=== PATIENT | female | born 1965 | race Caucasian/White ===

== ENCOUNTER 2022-04-04 07:39 | Outpatient (CLI) | payer BC, SELFPAY ==
--- NOTE | ~2022-04-04 | MM_ITS ---
EXAMINATION: MM scrn sabine implant BI w meliza HISTORY: Screening mammogram TECHNIQUE: Craniocaudal and mediolateral oblique 3-D tomosynthesis images with implant displacement a nd synthetic 2-D images were generated. Craniocaudal and mediolateral oblique views of the breasts wi thout implant displacement were obtained using full field digital mammography. CAD analysis was submi tted and interpreted. COMPARISON: No prior mammogram is available for comparison at this institution. BREAST PARENCHYMAL COMPOSITION: There are scattered areas of fibroglandular density. FINDINGS: There are bilateral subglandular breast implants with partial collapse of the left breast i mplant. There is no evidence of suspicious mass, calcification, or architectural distortion to sugges t malignancy in either breast. There has been no suspicious interval change. IMPRESSION: 1. No mammographic evidence of malignancy. 2. Recommend routine screening mammography in one year. BI-RADS Category 1: Negative Reviewed, dictated and finalized at location A. [employer]
== END 2022-04-04 07:40 | disposition home or self-care (01) ==
LOC: ANHIMG 07:43
PROVIDERS: Visit Provider Surgery Plastic and Reconstructive Surgery
DX: Z12.31 Encounter for screening mammogram for malignant neoplasm of breast (principal)
CPT/HCPCS: 77063; 77067

== ENCOUNTER 2022-04-15 07:53 | Day surgery (SDC) | payer OTHER, SELFPAY ==
[2022-03-31 17:02] VITALS: BMI 20.2
--- NOTE | 2022-04-01 10:05 | PC.NURSE ---
Report to the Outpatient Waiting Room, entrance under the green pavilion located off [facility], at 1230 on 04-15-22. Planned Procedure Time: 1430. Time changes happen often and if your time is changed the preop area will call you the afternoon before. - You and your visitor will be asked to self-screen and do not enter if you have any COVID symptoms. - Only one visitor is requested with a max of two and NO children visitors are allowed at this time. - The patient visitor may be requested to leave or wait in car when not with patient due to distancing restrictions. - A mask is required within the hospital. Patients may have clear liquids (water, carbonated beverages, clear teas, apple juice) until 3 hours prior to surgery with a maximum of 20 ounces. 1130 - No food from midnight until time of surgery - Infants may have breast milk until 4 hours before surgery, infant formula 6 hours prior to surgery. - Children will be allowed to drink immediately following surgery. If applicable, please bring a bottle or sippy cup to assist with drinking. Juice, water, soda, and popsicles are readily available. For infants on formula, please bring formula the day of surgery. Pacifiers are allowed. Take the following medications with a SIP of water the morning of surgery: mesalamine; tylenol and/or tramadol if needed Medications to discontinue per physician: N/A Please no make-up, nail honduran, hairspray, perfume, deodorant, or body powder the day of surgery. No jewelry (including any body piercings) or valuables the day of surgery, leave them at home. Please take a shower or bath the night before, or the morning of, surgery with an antibacterial soap. Wear comfortable, loose fitting clothing. Children are encouraged to wear pajamas. - Jewelry must be removed prior to entering the operating room. Rings and piercings that are not removed may be cut off. - The hospital will not accept responsibility for valuables. - Please leave all valuables, including medications, at home the day of surgery. If you are going home after surgery, a licensed vending route driver must drive you home. - NO public transportation without another adult if you receive anesthesia. - We recommend that an adult stay with you for 24 hours following discharge. - We also recommend that you do not drive, make important decision, drink alcoholic beverages, or take any drugs that were not prescribed by your health care provider for at least 24 hours after your discharge time. For Pediatric surgeries, we recommend two adults accompany the child home. Follow any additional instructions given to you from your surgeon. If you or anyone in your household have experienced Covid symptoms in the past week, please notify your surgeon or the nurse liaison at the phone number below for possible testing. Telephone instructions given to Janett Llanos and asked if any additional questions and then verbalized understanding. Patient advised to call surgeon office or pre surgery nurse liaison [phone] if any additional questions.
[2022-04-15] VITALS (7 sets, daily range): BP systolic 105–131; BP diastolic 61–78; PULSE 62–80; RESP 16–18; TEMP 36.2–37.3; O2SAT 95–100
[2022-04-15] MEDS: LACTATED RINGERS 1,000 ML 30 ML IV CONT ×2 (12:30→14:14)
--- NOTE | 2022-04-15 12:40 | WPDANESEPPF ---
Anes - Initial Pre Proc Eval Procedure: Operation Date: 04/15/22 14:30 Proposed Procedures p Bilateral Breast Implant Exchange with Capsulectomy - Akhil Gibbs MD Date/Time: 04/15/22 12:40 Surgeon: Akhil Gibbs MD Pre Op Diagnosis: hx of breast aug Patient Data Age: 57 Gender: F Height: 1.63 m Weight: 53.52 kg Allergies Allergy/AdvReac Type Severity Reaction Status Date / Time bacitracin Allergy Mild Rash Verified 03/31/22 17:00 [From Neosporin ([id number])] neomycin Allergy Mild Rash Verified 03/31/22 17:00 [From Neosporin ([id number])] polymyxin B Allergy Mild Rash Verified 03/31/22 17:00 [From Neosporin ([id number])] Home Medications Medication Instructions Recorded Confirmed Type acetaminophen 500 mg capsule 1,000 mg PO Q6H PRN Pain 03/31/22 03/31/22 History mesalamine 1.2 gram tablet,delayed 1.2 g PO BID 03/31/22 03/31/22 History release tramadol 50 mg tablet 50 mg PO Q4-6H PRN pain 03/31/22 03/31/22 History Patient hx anesthesia problems: none Family hx anesthesia problems: none Results Review: All pre-operative results and documents have been reviewed as part of the pre-operative evaluation. FOR[facility]LY [facility], [facility] Social History Social History Years smoked: 15 Smoking status: Former smoker Tobacco type: cigarettes and e-cigarettes/vaping Smoking end date: 04/13/14 Alcohol intake: current Drinks per week: 4 Alcohol use details: wine Substance use: never Substance use type: does not use Living arrangements: with family Spiritual care concerns: No Anes - Eval Final PreProcedure Day of Procedure 04/15/22 12:40 Patient weight: normal Heart: regular rate and rhythm Lungs: clear to auscultation Airway: Mallampati scale class II Neurological: alert and oriented Last oral intake: >/= 8 hours ASA classification: II Emergent: no Anesthetic plan: proceed Anesthesia type and monitoring: general LMA and standard monitoring Results Review: All pre-operative results and documents have been reviewed as part of the pre-operative evaluation. Informed Consent: The patient's anesthetic plan and its attendant risks and benefits were discussed with the patient/family/POA. Questions were solicited and answers provided to the satisfaction of the patient/family/POA.
--- NOTE | 2022-04-15 12:48 | P.HP_ITS ---
H&P: HPI History of Present Illness Date/Time: 04/15/22 12:48 Chief Complaint: Ruptured breast implant Narrative: She is here today for bilateral breast implant exchange with capsulectomy. Review of Systems Review of Systems: All systems reviewed & are unremarkable except as noted in HPI and below [facility] Social History Social History Years smoked: 15 Smoking status: Former smoker Tobacco type: cigarettes and e-cigarettes/vaping Smoking end date: 04/13/14 Alcohol intake: current Drinks per week: 4 Alcohol use details: wine Substance use: never Substance use type: does not use Living arrangements: with family Spiritual care concerns: No Meds Home Medications and Allergies Home Medications Medication Instructions Recorded Confirmed Type acetaminophen 500 mg capsule 1,000 mg PO Q6H PRN Pain 03/31/22 03/31/22 History mesalamine 1.2 gram tablet,delayed 1.2 g PO BID 03/31/22 03/31/22 History release tramadol 50 mg tablet 50 mg PO Q4-6H PRN pain 03/31/22 03/31/22 History Allergies Allergy/AdvReac Type Severity Reaction Status Date / Time bacitracin Allergy Mild Rash Verified 03/31/22 17:00 [From Neosporin ([id number])] neomycin Allergy Mild Rash Verified 03/31/22 17:00 [From Neosporin ([id number])] polymyxin B Allergy Mild Rash Verified 03/31/22 17:00 [From Neosporin ([id number])] Exam Narrative: Alert and oriented distress Respiratory on labored Abdomen soft. Bilateral breasts are soft. No masses palpable. Bilateral breast waterfall deformity. Left breast implant ruptured. Assessment and Plan Assessment and plan (1) History of breast augmentation: Code(s): Z98.82 - Breast implant status Status: Acute Assessment and Plan: She would like proceed with bilateral breast implant exchange with partial capsulectomy. Previously and again today risks, benefits, alternatives discussed in great detail. I wanted her to be very realistic about the risks involved as well as expectations. Answered all of her questions to her satisfaction. It was explained she will always have the waterfall deformity she has and she declines mastopexy. She understands the risks of implant usage. She would like to send the capsule and understands this is additional expense. She voiced a clear understanding along with her family. Consent obtained. (2) Ruptured left breast implant: Code(s): T85.43XA - Leakage of breast prosthesis and implant, initial encounter Status: Acute
--- NOTE | 2022-04-15 12:53 | WPDHPUPDATE1 ---
History and Physical Update Update Date/Time: 04/15/22 12:53 History and Physical has been reviewed, including an updated exam of the patient. There are NO changes in the patient's condition. Risks, benefits, and alternatives have been discussed and questions answered. Patient agrees to proceed with procedure.
--- NOTE | 2022-04-15 12:58 | P.OP_ITS ---
Procedure Note - Detailed Date of Procedure 04/15/22 Pre-op Diagnosis hx of breast aug Post-op Diagnosis Same Procedure Performed Bilateral breast implant exchange with partial capsulectomy Surgeon Akhil Gibbs MD Anesthesia General Findings Previous implants saline smooth: Right [place] 250cc Left [place] 200cc Bilateral Natrelle Saline [cc] cc Right - REF# [id number] SN [id number] filled to 300 cc Left - REF# [id number] SN [id number] filled to 300 cc Right capsule soft / thin. Left capsule calcified. Description of Procedure Preoperatively the risks, benefits, alternatives were discussed in extensive detail. I wanted to be very realistic about the risks involved as well as expectations. I was clear about how we could actually make her worse. She has a degree of waterfall deformity and understands she will still have this and declines treatment. Answered all questions to satisfaction. Voiced a clear understanding. Consent obtained. She was taken the operating room placed supine on the operating room table. Anesthesia provided by anesthesiology and prepped and draped in a standard sterile fashion. Surgical time-out was taken. 1% lidocaine and 0.25% Marcaine with epinephrine was used to provide a field block. Tegaderm nipple baker were placed. Fifteen blade used to excise the previous IMF scars. Dissection was continued down until the capsules were identified and excised the majority of bilateral capsules which were sent to pathology. I then copiously irrigated with 3 L of saline solution on TUR tubing. Verified strict hemostasis. I then irrigated with Betadine containing solution. There was a size differential on implants (unknown fill volume); however, on examination there was minimal different in current breast tissue volume. As such implants were selected as above. On the back table the implant was opened and immediately Betadine solution irrigation was used. I removed the air and this was introduced into the pocket. Using a fill kit the volume was filled as described above. This was closed with 2-0 Vicryl followed by 3-0 Monocryl and a running subcuticular 4-0 Monocryl followed by tissue glue. Dressings were placed. She was woken taken to the PACU without difficulty. All instrument sponge counts were correct at the end of the case. Estimated Blood Loss 30 Drains No Packing No Pathology Yes (bilateral breast capsules) Complications No immediate complications Condition Stable Disposition PACU
[2022-04-15] MEDS: TRANEXAMIC ACID 1,000MG/ISO100 1,000 MG/100 ML BAG 200 MG IVPB (12:59)
[2022-04-15] MEDS: ceFAZolin 2 GM/D5W 50 ML 2 GM/50 ML BAG IVPB (13:09)
[2022-04-15] MEDS: NACL 0.9% IRRIG POUR BOTTLE 900 ML, GENTAMICIN SULFATE INJ 160 MG, ceFAZolin 2 GM, POVI... IRRIGATION (13:24)
[2022-04-15] MEDS: BUPIVACAINE/EPINEPHRINE 0.5% 30 ML VIAL INFILTRATE (13:26)
[2022-04-15] MEDS: LIDOCAINE HCL 1% PF 30 ML VIAL INFILTRATE (13:27)
== END 2022-04-15 15:38 | disposition home health service (06) ==
PROVIDERS: Visit Provider Surgery Plastic and Reconstructive Surgery
PROC: (CPT 19342; principal; 2022-04-15 14:30)
DX: T85.43XA Leakage of breast prosthesis and implant, initial encounter (principal); Y83.8 Other surgical procedures as the cause of abnormal reaction of the patient, or of later complication, without mention of misadventure at the time of the procedure; Z87.891 Personal history of nicotine dependence
CPT/HCPCS: 19325; 19328; 19330; 88304; J0690; J1100; J1170; J1580; J2250; J2405; J2704; J3010; J7120